=== PATIENT | female | born 1965 | race Caucasian/White ===

== ENCOUNTER → 2016-08-23 | Outpatient (CLI) | payer OTHER ==
[2016-05-20 11:58] VITALS: BP 133/75
[~2016-08-23] MED LIST: ALPR0.5T6 PO; ASPI-482 PO; ATOR20TA58 PO; ETHI1TAB12 PO; HYDR-971 PO; IBUP200T6 PO; OLME1TAB PO
--- NOTE | 2016-08-23 16:24 | KCIC ---
PROCEDURE Bilateral digital mammogram with CAD HISTORY Routine screening TECHNIQUE Bilateral digital routine views were obtained with computer-aided detection. COMPARISON February 09, 2007 at August 21, 2015 FINDINGS Density C: heterogeneously dense fatty and fibroglandular tissue. There is no suspicious mass, calcifications or areas of architectural distortion. IMPRESSION No suspicious findings. [Recommend routine screening mammography in one year.] The breast tissue is dense. Mammography is less sensitive for abnormalities in areas of dense tissue. This study was interpreted with the benefit of Computerized Aided Detection (CAD). Mammography is not 100% sensitive in detecting breast cancer. Therefore, a self breast exam and a clinical breast exam are very important. A negative mammogram does not negate a clinically suspicious finding and should not result in a delay in biopsying a clinically suspicious abnormality. BI-RADS category 1: Negative. Electronically signed by: Matt Galvan MD (Aug 23, 2016 16:22:52)
== END | disposition home or self-care (01) ==
LOC: KCIC MAMMO 15:41
PROVIDERS: ATTEND Family Medicine
DX: Z12.31 Encounter for screening mammogram for malignant neoplasm of breast (principal)
CPT/HCPCS: G0202; 77067

== ENCOUNTER → 2017-09-26 | Outpatient (CLI) | payer OTHER | END | disposition home or self-care (01) | LOC: KCIC MAMMO 11:33 | DX: Z12.31 Encounter for screening mammogram for malignant neoplasm of breast (principal); I10 Essential (primary) hypertension; E78.5 Hyperlipidemia, unspecified | CPT/HCPCS: 77063; 77067 ==

== ENCOUNTER → 2018-05-25 | Outpatient (CLI) | payer OTHER ==
[2016-05-20 11:58] VITALS: BP 133/75
[~2018-05-25] MED LIST changes: +HYDR-3164 PO; -HYDR-971 PO; +IBUP-1227 PO; -IBUP200T6 PO; -OLME1TAB PO; +OLME1TAB21 PO
--- NOTE | 2018-05-25 17:13 | KCIC ---
THYROID ULTRASOUND History: Thyroid nodule Comparison: There is no previous exam available for visual comparison, correlation made with report from June 08, 2012. Findings: Multiple sonographic images of the thyroid gland are submitted. Right lobe measured 5.6 x 1.4 x 1.1 cm. Left lobe measured 4.6 x 1.1 x 1.3 cm. There are at least 3 nodules of the right gland with the largest superiorly 0.7 x 0.4 x 0.5 cm not associated with significant internal vascularity color Doppler imaging. Smaller focus inferiorly measures about 0.6 x 0.4 x 0.4 cm. Provided dimensions from the previous exam are fairly similar of the 2 dominant nodules. There are a few tiny hypoechoic nodules of the left gland, dominant focus inferiorly about 0.2 cm in greatest dimension. Isthmus measures 0.3 cm in thickness. Impression: 1. There are small thyroid nodules bilaterally, dominant nodules on the right fairly similar in size when comparing with previously provided measurements, other tiny foci not described for previous exam. Electronically signed by: Mati Johansen MD (05/25/2018 5:09 PM) [id number]
== END | disposition home or self-care (01) ==
LOC: KCIC US 15:25
PROVIDERS: ATTEND Family Medicine
DX: E04.2 Nontoxic multinodular goiter (principal)
CPT/HCPCS: 76536

== ENCOUNTER → 2018-09-22 | Outpatient (CLI) | payer OTHER ==
[2016-05-20 11:58] VITALS: BP 133/75
--- NOTE | 2018-09-22 17:03 | KCIC ---
BILATERAL SCREENING MAMMOGRAM, 3-D History: Routine screening. Comparison: Bilateral mammogram 01/26/2018 and dating back to 2014. Technique: MLO and CC digital tomosynthesis (3D) images obtained. Radiologist reviewed these images on dedicated workstation. Findings: Breast Tissue Density C : The breasts are heterogeneously dense, which may obscure small masses. There are no dominant masses, suspicious microcalcifications, or architectural distortion. IMPRESSION: No mammographic evidence of malignancy. Recommend routine screening. BI-RADS category 1: Negative. The images were reviewed with computer-aided detection. Patient information is entered into reminder system with a target due date for the next screening mammogram. Mammography is the most sensitive method for finding small breast cancers, but it does not detect them all and is not a substitute for careful clinical examination. A negative mammogram does not negate a clinically suspicious finding and should not result in delay in biopsying a clinically suspicious abnormality. "Our facility is accredited by the [employer] Mammography [employer]." Electronically signed by: Abdelrahman Santoyo MD (09/22/2018 5:01 PM) [id number]
== END | disposition home or self-care (01) ==
LOC: KCIC MAMMO 15:21
PROVIDERS: ATTEND Family Medicine
DX: Z12.31 Encounter for screening mammogram for malignant neoplasm of breast (principal)
CPT/HCPCS: 77063; 77067

== ENCOUNTER → 2019-07-26 | Outpatient (CLI) | payer OTHER ==
[2016-05-20 11:58] VITALS: BP 133/75
[~2019-07-26] MED LIST changes: -IBUP-1227 PO; +IBUP-1670 PO
--- NOTE | 2019-07-26 23:34 | KCIC ---
INDICATION: Family history of ovarian neoplasm COMPARISON: CT from February 2014 TECHNIQUE: Grayscale and color ultrasound images uterus and adnexa. Transabdominal and transvaginal images obtained. Transvaginal images were needed to better visualize structures that were limited on transabdominal imaging. FINDINGS: Uterus: 121 x 57 x 33 mm. Endometrial Stripe: 6 mm. Right Ovary: Obscured by bowel gas. Left Ovary: 48 x 38 x 45 mm. Cystic lesion left adnexa 43 x 35 x 43 mm. Intrauterine device is seen within the endometrial stripe. Urinary bladder is well distended at time of exam. IMPRESSION: * Complex cystic lesion left adnexa with peripheral regions of vascularity as well as some suspected nodularity along the wall. Given the presence of this finding and the patient's family history it may be helpful to obtain further workup with a pelvic MRI to further assess whether this component along the edge of the lesion with internal vascularity is secondary to ovarian tissue extending into the region or if it is secondary to a solid component of the cystic mass. Electronically signed by: Jose L Scherer MD (07/26/2019 11:31 PM) [id number]
== END | disposition home or self-care (01) ==
LOC: KCIC US 15:22
PROVIDERS: ATTEND Obstetrics & Gynecology
DX: Z30.431 Encounter for routine checking of intrauterine contraceptive device (principal); N32.89 Other specified disorders of bladder; R19.09 Other intra-abdominal and pelvic swelling, mass and lump; Z80.41 Family history of malignant neoplasm of ovary
CPT/HCPCS: 76830; 76856

== ENCOUNTER → 2019-11-16 | Outpatient (CLI) | payer OTHER ==
[2016-05-20 11:58] VITALS: BP 133/75
--- NOTE | 2019-11-16 09:31 | KCIC ---
Bilateral digital screening mammograms with 3-D tomosynthesis: Reason for examination: Routine screening. Comparison is made to previous studies dated back to 08/21/2015. Bilateral mammograms in CC and oblique projections were obtained with 2-D imaging and 3-D tomosynthesis imaging on a Siemens Inspiration unit and reviewed on the workstation. Interpretation was made with the benefit of CAD. The skin and nipples show no abnormalities. No abnormal axillary lymph nodes are seen. The breast parenchyma is heterogeneously dense. (Breast density: Category C.) There appears to be a small circumscribed nodule posterior superiorly in the left breast on oblique view probably medially in the breast. Recommend further evaluation with ultrasound. There is also some nodularity present at the subareolar 4:00 position anteriorly in the right breast. Further evaluation with ultrasound is recommended. There are no other new dominant masses, suspicious calcifications or architectural distortion. Impression: Small nodular density seen posterior superiorly in the left breast probably in the upper inner quadrant. Nodularity at the subareolar 4:00 position anteriorly in the right breast. Recommend further evaluation with ultrasound. Your patient's mammogram demonstrates that she has dense breast tissue (breast density category C or D), which could hide abnormalities, and if she has other risk factors for breast cancer that have been identified, she might benefit from supplemental screening tests that may be suggested by you as her ordering physician. Dense breast tissue, in and of itself, is a relatively common condition. Therefore, this information is not provided to cause undue concern, but rather to raise your awareness and to promote discussion with your patient regarding the presence of other risk factors, in addition to dense breast tissue. Your patient's mammography results will be sent to her. BI-RAD Category 0: Incomplete. Needs additional imaging evaluation. "Our facility is accredited by the [employer] Mammography [employer]." This patient's information has been entered into a reminder system for the patient to be notified with the results of her examination and a target date for the next mammogram. Electronically signed by: Elsy Nolen MD (11/16/2019 9:27 AM) [email or web address]
== END | disposition home or self-care (01) ==
LOC: KCIC MAMMO 08:27
PROVIDERS: ATTEND Family Medicine
DX: Z12.31 Encounter for screening mammogram for malignant neoplasm of breast (principal)
CPT/HCPCS: 77063; 77067

== ENCOUNTER → 2020-11-14 | Outpatient (CLI) | payer OTHER ==
[2016-05-20 11:58] VITALS: BP 133/75
--- NOTE | 2020-11-14 08:53 | KCIC ---
Bilateral digital screening mammograms with 3-D tomosynthesis: Reason for examination: Routine screening. Comparison is made to previous studies dated back to 07/04/2014. Bilateral mammograms in CC and oblique projections were obtained with 2-D imaging and 3-D tomosynthes is imaging on a Siemens Inspiration unit and reviewed on the workstation. Interpretation was made wit h the benefit of CAD. The skin and nipples show no abnormalities. No abnormal axillary lymph nodes are seen. The breast par enchyma is heterogeneously dense. (Breast density: Category C.) There continues to be some parenchyma l asymmetry in the upper outer quadrant of the right breast which is stable. There are no dominant ma sses, suspicious calcifications or architectural distortion. Impression: No evidence of malignancy. Recommend routine screening. Your patient's mammogram demonstrates that she has dense breast tissue (breast density category C or D), which could hide abnormalities, and if she has other risk factors for breast cancer that have bee n identified, she might benefit from supplemental screening tests that may be suggested by you as her ordering physician. Dense breast tissue, in and of itself, is a relatively common condition. Therefo re, this information is not provided to cause undue concern, but rather to raise your awareness and t o promote discussion with your patient regarding the presence of other risk factors, in addition to d ense breast tissue. Your patient's mammography results will be sent to her. BI-RAD Category 2: Benign. "Our facility is accredited by the [employer] Mammography [employer]." This patient's information has been entered into a reminder system for the patient to be notified wit h the results of her examination and a target date for the next mammogram. Electronically signed by: Elsy Nolen MD (11/14/2020 8:51 AM) [email or web address]
== END ==
LOC: KCIC MAMMO 07:53
PROVIDERS: ATTEND Family Medicine
DX: Z12.31 Encounter for screening mammogram for malignant neoplasm of breast (principal)
CPT/HCPCS: 77063; 77067